=== PATIENT | female | born 1995 | race Caucasian/White ===

== ENCOUNTER 2018-01-17 15:25 | Emergency (ER) | payer SELFPAY ==
[2018-01-17 16:09] VITALS: BP 124/80
== END 2018-01-17 16:00 ==
LOC: ED 15:25
DX: F41.9 Anxiety disorder, unspecified (principal)
CPT/HCPCS: 99281

== ENCOUNTER 2018-03-12 15:46 | Emergency (ER) | payer SELFPAY ==
[2018-03-12 16:09] VITALS: BP 125/85
[2018-03-12] MEDS ORDERED: AZITHROMYCIN 250 MG TABLET PO ONE (16:39)
[2018-03-12] MEDS ORDERED: cefTRIAXone SODIUM 1 GM VIAL IM SCH (17:00)
[2018-03-12] MEDS ORDERED: cefTRIAXone SODIUM 1 GM VIAL ONE (17:04)
--- NOTE | 2018-03-12 17:34 | ED Physician Documentation ---
Female Urogenital Problems - HISTORIAN Historian: patient - HPI Stated Complaint: sore throat, gonorrhea Chief Complaint: Female Urogenital Problems Additional Information: diagnosed with GC confirmed by swab 3 days ago at [facility] Onset: days ago (3) Severity: moderate Location of Pain: vulvar pain, other (sore throat) Further Comments: no - Vaginal Bleeding Abnormal Bleeding Started: 12/04/17 Compared to Menstrual Periods: spotting : 2 Para: 0 : 0 Description of Menstrual: irregular period(s) Where was Test Done: home Care: No Sexual History: active Contraceptive: none - Associated Symptoms Urinary Symptoms: none Discharge: vaginal discharge, yellowish discharge - ROS CONST: sweating GI/: denies: nausea, vomiting, decreased appetite, diarrhea, black stools, bloody stools CVS/RESP: none EYES/ENT: none NEURO/PSYCH: none MS/SKIN/LYMPH: none - PAST HX Past History: ectopic , endometriosis Other History: other (anxiety) Surgeries/Procedures: other (ectopic surgery) Immunizations: referred to PCP Allergies/Adverse Reactions: Allergies Allergy/AdvReac Type Severity Reaction Status Date / Time No Known Allergies Allergy Verified 03/12/18 16:08 Home Medications: Ambulatory Orders Medication Instructions Recorded clonazePAM [Klonopin] 1 mg PO 01/17/18 Nitrofurantoin Monohyd/M-Cryst 100 mg PO BID 03/12/18 [Macrobid] - SOCIAL HX Smoking History: cigarettes Alcohol Use: none Drug Use: none - FAMILY HX Family History: none - VITAL SIGNS Vital Signs: Vital Signs Temp Pulse Resp BP Pulse Ox 98.2 F 125 H 16 125/85 98 03/12/18 15:48 03/12/18 15:48 03/12/18 15:48 03/12/18 15:48 03/12/18 15:48 - REVIEWED ASSESSMENTS Nursing Assessment Reviewed: Yes Vitals Reviewed: Yes Progress - Results/Orders Results/Orders: no testing ordered - Progress Progress: pt given 1 gram Rocephin IM and 1 gram Zithromax p.o. n ER Critical Care Note - Critical Care Note Total Time (mins): 0 ED Results Lab/Radiology - Lab Results Lab Results: lab results from [facility] reviewed, GC positive - Radiology Radiology Impressions: none ordered - Orders Orders: ED Orders Category Date Time Status Azithromycin [Zithromax] Med 03/12/18 16:39 Discontinued 1,000 mg PO NOW ONE cefTRIAXone SODIUM [Rocephin] Med 03/12/18 17:00 Ordered 1 gm IM QD Female Urogenital Problems - EXAM General Appearance: alert, mild distress EENT: eye inspection normal, ENT inspection normal, pharyngeal erythema Neck: nml inspection Respiratory: no resp. distress, breath sounds nml CVS: reg rate & rhythm, heart sounds normal, equal pulses, no murmur Abdomen: soft, non-tender, no organomegaly, no distention, nml bowel sounds Back: non-tender Skin: color nml, no rash, warm,dry Extremities: non-tender, normal range of motion, no evidence of injury, no edema Neuro: oriented X3, CN's nml as tested, motor nml, sensation nml, mood/affect nml, cognition normal Discharge Clincal Impression: Gonorrhea Pharyngitis Qualifiers: Pharyngitis/tonsillitis etiology: unspecified etiology Qualified Code(s): J02.9 - Acute pharyngitis, unspecified UTI (urinary tract infection) Qualifiers: Urinary tract infection type: acute cystitis Hematuria presence: without hematuria Qualified Code(s): N30.00 - Acute cystitis without hematuria Referrals: Primary Doctor,No [Primary Care Provider] - 2 Days Comments: Discharged in stable condition with recommendation against unprotected intercourseand recommendation to use daily MVI, has already quit smoking, pt. to eat well, get adequate sleep and set up ob appt. ZACH. Condition: Stable Disposition: 01 HOME, SELF-CARE Decision to Admit: NO Decision Time: 17:34
== END 2018-03-12 17:38 | disposition home or self-care (01) ==
LOC: ED 15:46
DX: A54.9 Gonococcal infection, unspecified (principal); J02.9 Acute pharyngitis, unspecified; N30.00 Acute cystitis without hematuria
CPT/HCPCS: 96372; 99283; J0696